=== PATIENT | male | born 2000 | race African-American/Black ===

== ENCOUNTER 2021-08-30 11:27 | Emergency (ER) | payer SELFPAY ==
[2021-08-30 11:40] VITALS: BP 123/70; PULSE 78; TEMP 97.4; BMI 24.3
[2021-08-30] MEDS ORDERED: PENICILLIN G BENZATHINE 2,400,000 UNIT/4 ML PFS IM ONE (12:24)
[2021-08-30] MEDS ORDERED: PENICILLIN G BENZATHINE 1,200,000 UNIT/2 ML PFS IM ONE (12:47)
[2021-08-30] MEDS ORDERED: PENICILLIN G BENZATHINE 2,400,000 UNIT/4 ML PFS ONE (12:49)
== END 2021-08-30 14:05 | disposition home or self-care (01) ==
LOC: JERFT 11:27
PROC: 3E023GC Introduction of Other Therapeutic Substance into Muscle, Percutaneous Approach (ICD-10-PCS; principal; 2021-08-30)
PROC: 3E02329 Introduction of Other Anti-infective into Muscle, Percutaneous Approach (ICD-10-PCS; 2021-08-30)
DX: A51.39 Other secondary syphilis of skin (principal)
CPT/HCPCS: 99284-25